=== PATIENT | male | born 1955 | race American Indian/Alaskan Native ===

== ENCOUNTER 2020-02-06 09:19 | Emergency (ER) | payer OTHER ==
[2020-02-06] MEDS ORDERED: ACETAMINOPHEN 325 MG TAB PO ONE (11:44)
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
[2020-02-06 14:44] VITALS: BP 150/102
== END 2020-02-06 14:43 | disposition home or self-care (01) ==
LOC: ED 09:19
DX: S63.693A Other sprain of left middle finger, initial encounter (principal); S80.11XA Contusion of right lower leg, initial encounter; S80.12XA Contusion of left lower leg, initial encounter; I10 Essential (primary) hypertension; I25.2 Old myocardial infarction; Z79.899 Other long term (current) drug therapy; V49.49XA Driver injured in collision with other motor vehicles in traffic accident, initial encounter; Y92.410 Unspecified street and highway as the place of occurrence of the external cause; Y93.89 Activity, other specified; Y99.8 Other external cause status